=== PATIENT | female | born 1990 | race Caucasian/White ===

== ENCOUNTER → 2017-04-22 | Outpatient (CLI) | payer OTHER ==
[~2017-04-22] MED LIST: BIRTH CONTROL; CIPR500 PO; HYDACE5 PO; ONDA4ODT MM
[2017-04-23 02:43] LABS: Source ENDOCERVICAL/CE
== END | disposition home or self-care (01) ==
LOC: LAB 14:05
PROVIDERS: Nurse Practitioner
DX: Z01.419 Encounter for gynecological examination (general) (routine) without abnormal findings (principal)
CPT/HCPCS: G0145

== ENCOUNTER → 2018-04-27 | Outpatient (CLI) | payer OTHER | END | disposition home or self-care (01) | LOC: LAB SHORT 19:40 → LAB 19:40 | PROVIDERS: Nurse Practitioner | DX: Z01.419 Encounter for gynecological examination (general) (routine) without abnormal findings (principal) | CPT/HCPCS: G0145 ==

== ENCOUNTER → 2020-05-08 | Outpatient (CLI) | payer BC | LOC: LAB 15:00 → LAB SHORT 15:00 | PROVIDERS: Nurse Practitioner | DX: Z01.419 Encounter for gynecological examination (general) (routine) without abnormal findings (principal) | CPT/HCPCS: G0145 ==

== ENCOUNTER → 2022-06-05 | Outpatient (CLI) | payer BC ==
[~2022-06-05] MED LIST changes: +PRENATAL TABLE1 EAC2 PO
[2022-06-05 19:00] LABS: BASOPHILS ABSOLUTE AUTO 0.07 K/mm3 (0.00-0.23); BASOPHILS PERCENT AUTO 1 % (0-2); EOSINOPHILS ABSOLUTE AUTO 0.07 K/mm3 (0.00-0.68); EOSINOPHILS PERCENT AUTO 1 % (0-6); Hematocrit 42.9 % (33.0-51.0); IMMATURE GRAN ABSOLUTE AUTO 0.04 K/mm3 (0.00-0.10); IMMATURE GRAN PERCENT AUTO 0 % (0-1); LYMPHOCYTES PERCENT AUTO 24 % (21-46); MONOCYTES ABSOLUTE AUTO 0.71 K/mm3 (0.16-1.47); MONOCYTES PERCENT AUTO 6 % (4-13); Mean Corpuscular HGB 28.3 pg (26.0-34.0); Mean Corpuscular HGB Conc 32.6 g/dL (31.5-36.5); Mean Corpuscular Volume 87 fL (80-100); NEUTROPHILS ABSOLUTE AUTO 7.83 K/mm3 (1.96-9.15); NEUTROPHILS PERCENT AUTO 69 % (41-73); Platelet Count 416 K/mm3 (150-400); RDW Coefficient Variation 12.7 % (11.7-14.2); RDW Standard Deviation 39.7 fL (35.1-46.3); Red Blood Cell Count 4.94 M/mm3 (3.80-5.20); White Blood Cell Count 11.42 K/mm3 (4.00-11.30)
[2022-06-05 20:58] LABS: Albumin, Blood 3.8 g/dL (3.4-5.0); Albumin/Globulin Ratio 0.9 (0.8-1.8); Bilirubin, Total 1.1 mg/dL (0.1-1.0); C-REACTIVE PROTEIN, EXT RANGE 0.736 mg/dL (0.000-0.300); Creatinine, Blood 0.52 mg/dL (0.40-1.00); Globulin, Blood 4.4 g/dL (2.2-4.0); Potassium, Blood 3.6 mmol/L (3.5-5.5); Thyroid Stimulating Hormone 1.27 uIU/mL (0.360-4.800); Total Protein, Blood 8.2 g/dL (6.4-8.2)
== END | disposition home or self-care (01) ==
LOC: LAB 17:20 → LAB SHORT 17:20
PROVIDERS: Family Medicine
DX: Z00.00 Encounter for general adult medical examination without abnormal findings (principal)
CPT/HCPCS: 80053; 84443; 85025; 85651; 86140; 86430

== ENCOUNTER 2023-01-17 07:42 | Inpatient (IN) | payer BC ==
[~2023-01-17] VITALS: Ht 154.9 cm; Wt 108.0 kg
[2023-01-17] VITALS (14 sets, daily range): BP systolic 90–135; BP diastolic 60–106
[2023-01-17] MEDS ORDERED: CETI5 PO (08:58)
[2023-01-17] MEDS ORDERED: MAGCHL64ER (08:58)
[2023-01-17 09:05] LABS: BASOPHILS ABSOLUTE AUTO 0.02 K/mm3 (0.00-0.23); BASOPHILS PERCENT AUTO 0 % (0-2); EOSINOPHILS ABSOLUTE AUTO 0.03 K/mm3 (0.00-0.68); EOSINOPHILS PERCENT AUTO 0 % (0-6); Hematocrit 39.3 % (33.0-51.0); Hemoglobin 12.7 g/dL (11.5-16.0); IMMATURE GRAN ABSOLUTE AUTO 0.06 K/mm3 (0.00-0.10); IMMATURE GRAN PERCENT AUTO 1 % (0-1); LYMPHOCYTES ABSOLUTE AUTO 1.36 K/mm3 (0.84-5.20); LYMPHOCYTES PERCENT AUTO 16 % (21-46); MONOCYTES ABSOLUTE AUTO 0.47 K/mm3 (0.16-1.47); MONOCYTES PERCENT AUTO 6 % (4-13); Mean Corpuscular HGB 27.4 pg (26.0-34.0); Mean Corpuscular HGB Conc 32.3 g/dL (31.5-36.5); Mean Corpuscular Volume 85 fL (80-100); Mean Platelet Volume 10.9 fL (9.1-12.4); NEUTROPHILS PERCENT AUTO 77 % (41-73); Platelet Count 266 K/mm3 (150-400); RDW Coefficient Variation 13.8 % (11.7-14.2); RDW Standard Deviation 41.9 fL (35.1-46.3); Red Blood Cell Count 4.64 M/mm3 (3.80-5.20); White Blood Cell Count 8.34 K/mm3 (4.00-11.30)
--- NOTE | 2023-01-17 15:41 | NUR ---
01/17/23 1541 Wonderly,Dalia Marquez PRIMARY C/S FOR BREECH PRESENTATION, PT ARRIVED WITH SROM THIS AM. CORD BLOOD WAS COLLECTED, APGARS 8/9 WT 6-10, CORD GASES SENT WITH TRE FROM RT, CORD BLOOD SENT, SEE POST OP NOTE FOR OPERATIVE DETAILS.
[2023-01-17 15:48] LABS: PCO2 Cord - Arterial 60.8 mmHg (40-50); pH Cord - Arterial 7.29 (7.28-7.35)
--- NOTE | 2023-01-17 17:15 | NUR ---
PT ARRIVED TO PACU PAIN 0/10, REQUESTING ICE CHIPS AND SKIN TO SKIN WITH BABY
[2023-01-18 06:27] VITALS: BP 118/71
[2023-01-18 06:53] LABS: BASOPHILS ABSOLUTE AUTO 0.02 K/mm3 (0.00-0.23); BASOPHILS PERCENT AUTO 0 % (0-2); EOSINOPHILS PERCENT AUTO 0 % (0-6); Hemoglobin 10.2 g/dL (11.5-16.0); IMMATURE GRAN ABSOLUTE AUTO 0.07 K/mm3 (0.00-0.10); IMMATURE GRAN PERCENT AUTO 1 % (0-1); LYMPHOCYTES ABSOLUTE AUTO 1.66 K/mm3 (0.84-5.20); LYMPHOCYTES PERCENT AUTO 14 % (21-46); MONOCYTES ABSOLUTE AUTO 0.78 K/mm3 (0.16-1.47); MONOCYTES PERCENT AUTO 7 % (4-13); Mean Corpuscular HGB 27.4 pg (26.0-34.0); Mean Corpuscular HGB Conc 31.9 g/dL (31.5-36.5); Mean Corpuscular Volume 86 fL (80-100); Mean Platelet Volume 10.9 fL (9.1-12.4); NEUTROPHILS ABSOLUTE AUTO 9.33 K/mm3 (1.96-9.15); NEUTROPHILS PERCENT AUTO 79 % (41-73); Platelet Count 237 K/mm3 (150-400); RDW Coefficient Variation 13.7 % (11.7-14.2); RDW Standard Deviation 42.8 fL (35.1-46.3); Red Blood Cell Count 3.72 M/mm3 (3.80-5.20); White Blood Cell Count 11.86 K/mm3 (4.00-11.30)
[2023-01-18 07:09] VITALS: BP 114/71
[2023-01-18 13:04] VITALS: BP 107/58
[2023-01-18 17:06] VITALS: BP 131/69
[2023-01-18 19:31] VITALS: BP 124/67
[2023-01-19 00:39] VITALS: BP 130/68
[2023-01-19 04:38] VITALS: BP 135/75
[2023-01-19 08:12] VITALS: BP 140/73
[2023-01-19] MEDS ORDERED: IBUP800 PO (10:28)
[2023-01-19] MEDS ORDERED: Percocet 5-3251 EACH PO (10:29)
[2023-01-19 12:11] VITALS: BP 130/78
== END 2023-01-19 12:22 | disposition home or self-care (01) | DRG 788 ==
LOC: OBS 07:42 → BC 08:06
PROVIDERS: Obstetrics & Gynecology; ADMIT Advanced Practice Midwife
PROC: 4A033R1 Measurement of Arterial Saturation, Peripheral, Percutaneous Approach (ICD-10-PCS; 2023-01-17)
PROC: 10D00Z1 Extraction of Products of Conception, Low, Open Approach (ICD-10-PCS; principal; 2023-01-17 14:30)
DX: O42.013 Preterm premature rupture of membranes, onset of labor within 24 hours of rupture, third trimester (principal); O32.1XX0 Maternal care for breech presentation, not applicable or unspecified; Z3A.36 36 weeks gestation of pregnancy; Z37.0 Single live birth; Z90.49 Acquired absence of other specified parts of digestive tract; Z98.890 Other specified postprocedural states; Z91.040 Latex allergy status; Z91.011 Allergy to milk products; Z88.8 Allergy status to other drugs, medicaments and biological substances; Z79.899 Other long term (current) drug therapy
CPT/HCPCS: 36415; 59025; 82803; 85025; 86850; 86900; 86901; 86920; 90471; 90707; A9270; J0456; J0690; J1100; J1885; J2405; J2590; J3010; J7050; J7120

== ENCOUNTER 2024-05-07 10:39 | Day surgery (SDC) | payer BC ==
[~2024-05-07] VITALS: Ht 154.9 cm; Wt 101.1 kg
[~2024-05-07 10:39] MED LIST changes: +CETI5 PO; +IBUP800 PO; +MAGCHL64ER; +Percocet 5-3251 EACH PO
[2024-05-07] MEDS ORDERED: Ketorolac Tromethamine 30mg Vial ONE (10:52)
[2024-05-07] MEDS ORDERED: Ondansetron HCl 2 MG / ML 2ML Vial ONE (10:52)
[2024-05-07] MEDS ORDERED: Rocuronium Bromide 10 MG/ML 5ML Injection IV ONE (10:52)
[2024-05-07] MEDS ORDERED: propofoL 20 ML IV ONE (10:52)
[2024-05-07] MEDS ORDERED: FentaNYL Citrate 50 MCG/ML 2 ML Injection ONE ×2 (10:52→11:48)
[2024-05-07] MEDS ORDERED: Dexamethasone Sod Phos 10 MG/ML 1ML VIAL ONE (10:52)
[2024-05-07] MEDS ORDERED: SUDOGEST (11:04)
[2024-05-07] MEDS ORDERED: CLIN150 PO (11:04)
[2024-05-07] MEDS ORDERED: ZINC15 (11:05)
--- NOTE | 2024-05-07 11:11 | NUR ---
05/07/[address] [place], [place] [address]Sapnamargaux WHITEHEAD NOTIFIED THAT PATIENT HAS SEVERE VOMITING REACTION TO CEFUROXIME AND THAT SHE IS CURRENTLY TAKING CLINDAMYCIN FOR A SINUS INFECTION. PER DR WHITEHEAD ORDER CHANGED FROM CEFAZOLIN 2 MG TO VANCOMYCIN AND START VANCOMYCIN SOON IT COMES FROM PHARMACY.
[2024-05-07] MEDS ORDERED: Lactated Ringer's 1,000 ML IV ONE ×2 (11:12→12:53)
[2024-05-07] MEDS ORDERED: Vancomycin HCL 1,000 MG in NS 250 ML IV SCH (11:15)
[2024-05-07] MEDS ORDERED: Bupivacaine 0.5% W/EPI 1:200000 SDV 30 ML Vial ONE (11:15)
--- NOTE | 2024-05-07 11:49 | NUR ---
05/07/[address] PREPED WITH ALCOHOL, EVANS GALEAS PREPED CHLORAPREP
[2024-05-07 12:33] VITALS: BP 115/69
--- NOTE | 2024-05-07 13:12 | NUR ---
05/07/24 1312 ALBER RAYMOND SAW PT AT BEDSIDE AT THIS TIME
== END 2024-05-07 13:11 | disposition home or self-care (01) ==
LOC: ORSCSDS 10:39
PROVIDERS: Podiatrist Foot & Ankle Surgery
PROC: 0QSP04Z Reposition Left Metatarsal with Internal Fixation Device, Open Approach (ICD-10-PCS; principal; 2024-05-07 12:00)
DX: M77.42 Metatarsalgia, left foot (principal); G47.33 Obstructive sleep apnea (adult) (pediatric); E66.9 Obesity, unspecified; Z68.41 Body mass index [BMI] 40.0-44.9, adult; Z79.899 Other long term (current) drug therapy
CPT/HCPCS: C1713; C1769; J1100; J1885; J2405; J2704; J3010; J3370; J7050; J7120

== ENCOUNTER 2024-11-03 08:38 | Day surgery (SDC) | payer BC ==
[~2024-11-03] VITALS: Ht 154.9 cm; Wt 103.3 kg
[~2024-11-03 08:38] MED LIST changes: +CLIN150 PO; +EPINEPhrine HCl 1 MG / ML 30ML Vial ONE; +Lidocaine 1%-Epineph 1:200000 30 ML SDV ONE; +SUDOGEST; +ZINC15
[2024-11-03] MEDS ORDERED: Tranexamic Acid 100 ML IV ONE (09:15)
[2024-11-03] MEDS ORDERED: PROBIOTIC1 EA14 (09:57)
[2024-11-03] MEDS ORDERED: [UNRECOGNIZED DRUG - OTHER] (09:58)
[2024-11-03] MEDS ORDERED: Midazolam HCl 1MG / ML 2ML Vial ONE (10:10)
[2024-11-03] MEDS ORDERED: FentaNYL Citrate 50 MCG/ML 2 ML Injection ONE ×2 (10:10→12:56)
[2024-11-03] MEDS ORDERED: Ondansetron HCl 2 MG / ML 2ML Vial ONE (10:10)
[2024-11-03] MEDS ORDERED: Dexamethasone Sod Phos 10 MG/ML 1ML VIAL ONE (10:10)
[2024-11-03] MEDS ORDERED: Rocuronium Bromide 10 MG/ML 5ML Injection IV ONE (10:10)
--- NOTE | 2024-11-03 11:43 | NUR ---
11/03/24 1143 Vishnu Duenas 30ML OF EPI 1MG/ML ADDED TO FIELD. USED TO SOAK CAITLIN FOR PROCEDURE.
[2024-11-03] MEDS ORDERED: Sugammadex Sodium 200 MG/2ML SDV (100 MG/ML) ONE (12:00)
--- NOTE | 2024-11-03 13:09 | NUR ---
11/03/24 1309 Francia Borja PT TO PACU, TACHYCARDIC, COOPERATIVE. ORDER CLARIFICATION FROM DR. KAMINSKI, NO NEED TO TX HR, TX PAIN AT THIS TIME. AWAITING ROOM FOR CONTINUOUS HR MONITORING ABILITY AND AUTOMATIC VS.
[2024-11-03 13:33] VITALS: BP 152/96
--- NOTE | 2024-11-03 14:29 | NUR ---
11/03/24 1429 David Monzon PT DISCHARGED AT TOLERABLE LEVEL OF PAIN AT 5/10 TO SINUSES AND THROAT. DENIES NAUSEA AND TOLERATING FOOD AND FLUIDS. NO BLEEDING FROM NOSE OBSERVED BY TIME OF DISCHARGE
== END 2024-11-03 14:27 | disposition home or self-care (01) ==
LOC: ORSCSDS 08:38
PROVIDERS: Otolaryngology
PROC: 09SL0ZZ Reposition Nasal Turbinate, Open Approach (ICD-10-PCS; principal; 2024-11-03 11:30)
PROC: 0CTQXZZ Resection of Adenoids, External Approach (ICD-10-PCS; principal; 2024-11-03 11:30)
PROC: 09BM0ZZ Excision of Nasal Septum, Open Approach (ICD-10-PCS; principal; 2024-11-03 11:30)
PROC: 0CTPXZZ Resection of Tonsils, External Approach (ICD-10-PCS; principal; 2024-11-03 11:30)
DX: J34.3 Hypertrophy of nasal turbinates (principal); J34.2 Deviated nasal septum; J35.3 Hypertrophy of tonsils with hypertrophy of adenoids; J32.8 Other chronic sinusitis; J34.89 Other specified disorders of nose and nasal sinuses; G47.33 Obstructive sleep apnea (adult) (pediatric); E66.01 Morbid (severe) obesity due to excess calories; Z68.41 Body mass index [BMI] 40.0-44.9, adult
CPT/HCPCS: 88304; J0165; J1100; J2250; J2405; J2704; J3010; J7120